=== PATIENT | female | born 1965 | race Caucasian/White ===

== ENCOUNTER 2017-06-23 20:09 | Emergency (ER) | payer OTHER ==
[~2017-06-23] VITALS: Ht 165.1 cm; Wt 77.1 kg
[~2017-06-23 20:09] MED LIST: ATOR40TA PO; BLACK COHOSH EX80 MG PO; IBUP800; LEVSOD88 PO; METO25ER PO
[2017-06-23 20:43] LABS: BASOPHILS ABSOLUTE AUTO 0.02 K/mm3 (0.00-0.23); BASOPHILS PERCENT AUTO 0 % (0-2); EOSINOPHILS PERCENT AUTO 0 % (0-6); Hematocrit 38.5 % (33.0-51.0); Hemoglobin 13.4 g/dL (11.5-16.0); IMMATURE GRAN ABSOLUTE AUTO 0.03 K/mm3 (0.00-0.10); IMMATURE GRAN PERCENT AUTO 0 % (0-1); LYMPHOCYTES ABSOLUTE AUTO 2.37 K/mm3 (0.84-5.20); LYMPHOCYTES PERCENT AUTO 21 % (21-46); MONOCYTES ABSOLUTE AUTO 0.81 K/mm3 (0.16-1.47); MONOCYTES PERCENT AUTO 7 % (4-13); Mean Corpuscular HGB 30.1 pg (26.0-34.0); Mean Corpuscular HGB Conc 34.8 g/dL (31.5-36.5); Mean Corpuscular Volume 87 fL (80-100); Mean Platelet Volume 9.4 fL (9.1-12.4); NEUTROPHILS ABSOLUTE AUTO 8.07 K/mm3 (1.96-9.15); NEUTROPHILS PERCENT AUTO 71 % (41-73); Platelet Count 210 K/mm3 (150-400); RDW Coefficient Variation 11.6 % (11.7-14.2); RDW Standard Deviation 37.2 fL (35.1-46.3); Red Blood Cell Count 4.45 M/mm3 (3.80-5.20)
[2017-06-23 21:01] LABS: Alanine Aminotransfer (ALT/SGP 25 U/L (12-78); Albumin, Blood 3.6 g/dL (3.4-5.0); Albumin/Globulin Ratio 0.8 (0.8-1.8); Alk Phos 70 U/L (50-136); Anion Gap 7 mmol/L (6-16); Aspartate Aminotrans (AST/SGOT 21 U/L (12-37); Bilirubin, Total 0.4 mg/dL (0.1-1.0); Blood Urea Nitrogen 13 mg/dL (8-24); Bun/Creatinine Ratio 17.1 (12.0-20.0); CO2, Blood 25 mmol/L (21-32); Chloride, Blood 103 mmol/L (98-108); Creatinine, Blood 0.76 mg/dL (0.40-1.00); Globulin, Blood 4.5 g/dL (2.2-4.0); Glomerular Filtration Rate >60 (60-); Glucose, Blood 125 mg/dL (70-99); Sodium, Blood 135 mmol/L (136-145); Total Protein, Blood 8.1 g/dL (6.4-8.2)
[2017-06-23 21:53] LABS: Source, Urine Clean Catch
[2017-06-23 21:57] LABS: Bilirubin, Urine Neg (Neg); Blood, Urine 1+ (Neg); Glucose Qualitative, Urine Neg (Neg); Ketones, Urine 1+ (Neg); Leukocyte Esterase, Urine Neg (Neg); Nitrite, Urine Neg (Neg); Protein, Urine 2+ (Neg); Specific Gravity, Urine 1.015 (1.003-1.022); Urobilinogen, Urine 1+ (Normal); pH, Urine 6.5 (5.0-8.0)
[2017-06-23 22:09] LABS: Appearance, Urine Clear (Clear); Color, Urine Yellow (P-Yellow)
[2017-06-23 22:10] LABS: White Blood Cells, Urine 0-2 /hpf (0-5)
[2017-06-23 22:11] LABS: Amorphous Light (0-Heavy); Bacteria Few /hpf; Squamous Epithelial Cells Few /hpf (Few)
[2017-06-23] MEDS ORDERED: Zofran Odt4 MG PO (23:22)
== END 2017-06-23 22:46 | disposition left against medical advice (07) ==
LOC: ER 20:09
PROVIDERS: Emergency Medicine
DX: R11.2 Nausea with vomiting, unspecified (principal); R19.7 Diarrhea, unspecified; R10.32 Left lower quadrant pain; Z79.899 Other long term (current) drug therapy; I10 Essential (primary) hypertension; E03.9 Hypothyroidism, unspecified
CPT/HCPCS: 36415; 74177; 80053; 81001; 83690; 85025; 99284; J2405; J7030; Q9967

== ENCOUNTER 2017-06-27 12:38 | Emergency (ER) | payer OTHER ==
[~2017-06-27] VITALS: Ht 165.1 cm; Wt 72.6 kg
[~2017-06-27 12:38] MED LIST changes: +Zofran Odt4 MG PO
[2017-06-27 13:42] LABS: BASOPHILS ABSOLUTE AUTO 0.02 K/mm3 (0.00-0.23); BASOPHILS PERCENT AUTO 0 % (0-2); EOSINOPHILS ABSOLUTE AUTO 0.03 K/mm3 (0.00-0.68); EOSINOPHILS PERCENT AUTO 0 % (0-6); Hematocrit 37.6 % (33.0-51.0); Hemoglobin 13.3 g/dL (11.5-16.0); IMMATURE GRAN ABSOLUTE AUTO 0.22 K/mm3 (0.00-0.10); IMMATURE GRAN PERCENT AUTO 2 % (0-1); LYMPHOCYTES ABSOLUTE AUTO 2.68 K/mm3 (0.84-5.20); LYMPHOCYTES PERCENT AUTO 27 % (21-46); MONOCYTES ABSOLUTE AUTO 0.81 K/mm3 (0.16-1.47); MONOCYTES PERCENT AUTO 8 % (4-13); Mean Corpuscular HGB 30.4 pg (26.0-34.0); Mean Corpuscular HGB Conc 35.4 g/dL (31.5-36.5); Mean Corpuscular Volume 86 fL (80-100); Mean Platelet Volume 9.2 fL (9.1-12.4); NEUTROPHILS ABSOLUTE AUTO 6.36 K/mm3 (1.96-9.15); NEUTROPHILS PERCENT AUTO 63 % (41-73); Platelet Count 407 K/mm3 (150-400); RDW Coefficient Variation 11.8 % (11.7-14.2); RDW Standard Deviation 36.7 fL (35.1-46.3); Red Blood Cell Count 4.38 M/mm3 (3.80-5.20); White Blood Cell Count 10.12 K/mm3 (4.00-11.30)
[2017-06-27 13:59] LABS: Alanine Aminotransfer (ALT/SGP 31 U/L (12-78); Albumin, Blood 3.4 g/dL (3.4-5.0); Albumin/Globulin Ratio 0.7 (0.8-1.8); Alk Phos 66 U/L (50-136); Anion Gap 11 mmol/L (6-16); Aspartate Aminotrans (AST/SGOT 20 U/L (12-37); Bilirubin, Total 0.6 mg/dL (0.1-1.0); Blood Urea Nitrogen 8 mg/dL (8-24); Bun/Creatinine Ratio 9.9 (12.0-20.0); CO2, Blood 22 mmol/L (21-32); Calcium, Blood 9.2 mg/dL (8.5-10.1); Chloride, Blood 106 mmol/L (98-108); Creatinine, Blood 0.81 mg/dL (0.40-1.00); Globulin, Blood 4.9 g/dL (2.2-4.0); Glomerular Filtration Rate >60 (60-); Glucose, Blood 122 mg/dL (70-99); Potassium, Blood 2.8 mmol/L (3.5-5.5); Sodium, Blood 139 mmol/L (136-145); Total Protein, Blood 8.3 g/dL (6.4-8.2)
[2017-06-27 14:29] LABS: Magnesium, Blood 2.2 mg/dL (1.6-2.4)
[2017-06-27 14:50] LABS: Source, Urine Clean Catch
[2017-06-27 15:07] LABS: Bilirubin, Urine Neg (Neg); Blood, Urine 1+ (Neg); Glucose Qualitative, Urine Neg (Neg); Ketones, Urine 2+ (Neg); Leukocyte Esterase, Urine Neg (Neg); Nitrite, Urine Neg (Neg); Protein, Urine 2+ (Neg); Urobilinogen, Urine NORM (Normal)
[2017-06-27 15:23] LABS: Influenza A Negative (NEGATIVE); Influenza B Negative (NEGATIVE)
[2017-06-27 15:36] LABS: Appearance, Urine Clear (Clear); Color, Urine Pale Yellow (P-Yellow)
[2017-06-27 15:37] LABS: Bacteria Not Seen /hpf; Red Blood Cells, Urine Not Seen /hpf (0-2); Squamous Epithelial Cells Many /hpf (Few); White Blood Cells, Urine Not Seen /hpf (0-5)
[2017-06-27] MEDS ORDERED: K-Dur20 MEQ PO (15:57)
[2017-06-27] MEDS ORDERED: Mobic15 MG PO (15:57)
== END 2017-06-27 16:49 | disposition home or self-care (01) ==
LOC: ER 12:38
PROVIDERS: Emergency Medicine; Physician Assistant
DX: M79.1 Myalgia (principal); R19.7 Diarrhea, unspecified; E87.6 Hypokalemia; Z79.899 Other long term (current) drug therapy
CPT/HCPCS: 36415; 71046; 80053; 81001; 83690; 83735; 85025; 87804; 96361; 96374; 96375; 99283; J1885; J2405; J7030

== ENCOUNTER → 2018-10-17 | Outpatient (CLI) | payer OTHER ==
[~2018-10-17] MED LIST changes: +K-Dur20 MEQ PO; +Mobic15 MG PO
[2018-10-18 14:07] LABS: HPV 16 Negative (Negative); HPV 18 Negative (Negative); HPV OTHER HR TYPES Negative (Negative)
== END | disposition home or self-care (01) ==
LOC: LAB 12:43 → LAB SHORT 12:43
PROVIDERS: Nurse Practitioner Women's Health
DX: Z12.72 Encounter for screening for malignant neoplasm of vagina (principal); Z91.89 Other specified personal risk factors, not elsewhere classified
CPT/HCPCS: 87624; G0123

== ENCOUNTER 2022-01-27 06:11 | Day surgery (SDC) | payer OTHER ==
[~2022-01-27] VITALS: Ht 160 cm; Wt 76.0 kg
== END 2022-01-27 09:21 | disposition home or self-care (01) ==
LOC: ORSCSDS 06:11
PROVIDERS: Orthopaedic Surgery
PROC: 0SBC4ZZ Excision of Right Knee Joint, Percutaneous Endoscopic Approach (ICD-10-PCS; principal; 2022-01-27 07:30)
DX: S83.281A Other tear of lateral meniscus, current injury, right knee, initial encounter (principal); S83.241A Other tear of medial meniscus, current injury, right knee, initial encounter; S83.511A Sprain of anterior cruciate ligament of right knee, initial encounter; M67.51 Plica syndrome, right knee; W17.89XA Other fall from one level to another, initial encounter; J44.9 Chronic obstructive pulmonary disease, unspecified; E03.9 Hypothyroidism, unspecified; Z79.899 Other long term (current) drug therapy; M19.90 Unspecified osteoarthritis, unspecified site
CPT/HCPCS: A9270; J0690; J1100; J2250; J2405; J2704; J3010; J7120

== ENCOUNTER 2023-12-15 09:57 | Day surgery (SDC) | payer OTHER ==
[~2023-12-15] VITALS: Ht 160 cm; Wt 78.6 kg
[~2023-12-15 09:57] MED LIST changes: +Lactated Ringer's 1,000 ML IV ONE
[2023-12-15] MEDS ORDERED: MONT10T (10:14)
[2023-12-15] MEDS ORDERED: CITALOPRAM HBR10 MG (10:14)
[2023-12-15] MEDS ORDERED: LATA.005SO (10:15)
[2023-12-15] MEDS ORDERED: BREYNA 160-4.10.3 GM (10:15)
[2023-12-15] MEDS ORDERED: TIMO.5OPSO (10:15)
[2023-12-15] MEDS ORDERED: Lactated Ringer's 1,000 ML IV ONE (10:27)
--- NOTE | 2023-12-15 10:56 | NUR ---
12/15/23 1056 Beth Moody INJECTED INTO THE RIGHT WRIST 8ML OF LOCAL. TIME OUT AT 1051. INJECTION AT 1052, END AT 1052. PATIENT TOLERATED WELL.
[2023-12-15] MEDS ORDERED: Midazolam HCl 1MG / ML 2ML Vial ONE (11:17)
[2023-12-15 11:40] VITALS: BP 113/63
--- NOTE | 2023-12-15 11:52 | NUR ---
12/15/23 Elder2 Juju Paulino PT DENIED PAIN AND NO NAUSEA. PT ABLE TO TOLERATE FLUIDS. VSS. TM
== END 2023-12-15 12:00 | disposition home or self-care (01) ==
LOC: ORSCSDS 09:57
PROVIDERS: Orthopaedic Surgery
PROC: 01N54ZZ Release Median Nerve, Percutaneous Endoscopic Approach (ICD-10-PCS; principal; 2023-12-15 14:00)
DX: G56.03 Carpal tunnel syndrome, bilateral upper limbs (principal); M18.0 Bilateral primary osteoarthritis of first carpometacarpal joints; I25.10 Atherosclerotic heart disease of native coronary artery without angina pectoris; G47.33 Obstructive sleep apnea (adult) (pediatric); J44.9 Chronic obstructive pulmonary disease, unspecified; E78.00 Pure hypercholesterolemia, unspecified; E03.9 Hypothyroidism, unspecified; Z87.891 Personal history of nicotine dependence; Z79.82 Long term (current) use of aspirin; Z79.899 Other long term (current) drug therapy
CPT/HCPCS: J2250; J7120

== ENCOUNTER 2024-01-09 08:16 | Day surgery (SDC) | payer OTHER ==
[~2024-01-09] VITALS: Ht 160 cm; Wt 78.9 kg
[~2024-01-09 08:16] MED LIST changes: +BREYNA 160-4.10.3 GM INH; +CITALOPRAM HBR10 MG; +LATA.005SO BOTHEYES; +MONT10T PO; +TIMO.5OPSO BOTHEYES
[2024-01-09] MEDS ORDERED: Lactated Ringer's 1,000 ML IV ONE (09:17)
[2024-01-09] MEDS ORDERED: propofoL 20 ML IV ONE (09:21)
--- NOTE | 2024-01-09 09:23 | NUR ---
01/09/24 0923 Margaret Escobedo TIME OUT AT 0915 TO VERIFY CORRECT PT, PROCEDURE, SITE, ALLERIGES AND MEDICATION. PT ELECTED TO PROCEED WITH BLOCK. 8CC USED OF LIDOCAINE 1% WITH EPI [id number] WITH 1CC SODIUM BICARB. PT TOLERATED WELL. END AT 0917
[2024-01-09 09:51] VITALS: BP 101/63
[2024-01-09] MEDS ORDERED: CITALOPRAM HBR10 MG PO (11:43)
== END 2024-01-09 10:05 | disposition home or self-care (01) ==
LOC: ORSCSDS 08:16
PROVIDERS: Orthopaedic Surgery
PROC: 01N54ZZ Release Median Nerve, Percutaneous Endoscopic Approach (ICD-10-PCS; principal; 2024-01-09 10:15)
DX: G56.02 Carpal tunnel syndrome, left upper limb (principal); M17.12 Unilateral primary osteoarthritis, left knee; J44.9 Chronic obstructive pulmonary disease, unspecified; E78.00 Pure hypercholesterolemia, unspecified; E03.9 Hypothyroidism, unspecified; G47.30 Sleep apnea, unspecified; Z87.891 Personal history of nicotine dependence; Z79.82 Long term (current) use of aspirin; Z79.899 Other long term (current) drug therapy; Z01.812 Encounter for preprocedural laboratory examination; R94.31 Abnormal electrocardiogram [ECG] [EKG]
CPT/HCPCS: 36415; 80048; 85025; 93005; 93010; J2704; J7120

== ENCOUNTER 2024-01-30 07:56 | Day surgery (SDC) | payer OTHER ==
[2024-01-30] VITALS (14 sets, daily range): BP systolic 93–125; BP diastolic 53–86
[~2024-01-30] VITALS: Ht 160 cm; Wt 77.7 kg
[~2024-01-30 07:56] MED LIST changes: +Acetaminophen 500 MG Tab PO SCH; +CITALOPRAM HBR10 MG PO; +CeFAZolin Sodium 2,000 MG in NS 100 ML IV SCH; +Chlorhexidine Mouth Care 15 ML UDC MT SCH; -Lactated Ringer's 1,000 ML IV ONE; +Lactated Ringer's 1,000 ML IV SCH; +OxyCODONE HCL 10 MG TABCR PO SCH; +Ropivacaine 0.5% HCl/Pf 123.125 MG,EPINEPHrine HCL 0.25 MG,Ketorolac Tromethamine 15 MG... INFIL SCH; +Tranexamic Acid 100 ML IV SCH
--- NOTE | 2024-01-30 08:40 | NUR ---
Ambulatory in Day Surgery.Reports 3/10 left knee pain. History, Chart, Medications and Allergies reviewed before start of procedure.Lungs clear T/O to Auscultation. Patient confirms NPO status and agrees with scheduled surgery. Patient reports completing Chlorhexadine shower X2 prior to admission to hospital.Surgical site prepped with 2% Chlorhexidine cloth wipe.
[2024-01-30] MEDS ORDERED: CeFAZolin Sodium 2,000 MG VIAL ONE (08:53)
[2024-01-30] MEDS ORDERED: FentaNYL Citrate 50 MCG/ML 2 ML Injection ONE (10:38)
[2024-01-30] MEDS ORDERED: Midazolam HCl 1MG / ML 2ML Vial ONE ×2 (10:38→11:01)
[2024-01-30] MEDS ORDERED: Ondansetron HCl 2 MG / ML 2ML Vial ONE (11:02)
[2024-01-30] MEDS ORDERED: Dexamethasone Sod Phos 10 MG/ML 1ML VIAL ONE (11:02)
[2024-01-30] MEDS ORDERED: Lactated Ringer's 1,000 ML IV SCH (11:05)
[2024-01-30] MEDS ORDERED: HYDROmorphone HCl/Pf 1MG SYR IV PRN (11:05)
[2024-01-30] MEDS ORDERED: Magnesium Hydroxide Conc 10 ML UDC PO PRN (11:05)
[2024-01-30] MEDS ORDERED: Metoclopramide HCl 5MG / ML 2ML Vial IV PRN (11:05)
[2024-01-30] MEDS ORDERED: OxyCODONE HCL 5 MG TAB PO PRN ×2 (11:10)
[2024-01-30] MEDS ORDERED: Ondansetron HCl 2 MG / ML 2ML Vial IV PRN (11:10)
[2024-01-30] MEDS ORDERED: FLU VACC TS2024-25(6MOS UP)/PF 45 MCG/0.5 ML SYRINGE IM ONE (11:10)
[2024-01-30] MEDS ORDERED: Bisacodyl 10 MG Supp PR PRN (11:15)
[2024-01-30] MEDS ORDERED: Promethazine HCl 25 MG Tab PO PRN (11:15)
[2024-01-30] MEDS ORDERED: DiphenhydrAMINE HCL 25 MG Cap PO PRN (11:15)
[2024-01-30] MEDS ORDERED: Mometasone/Formoterol MDI 200/5 mcg 13 GM INH SCH (11:20)
[2024-01-30] MEDS ORDERED: Ketorolac Tromethamine 15mg Vial IV SCH (12:00)
[2024-01-30] MEDS ORDERED: Acetaminophen 500 MG Tab PO SCH (16:00)
[2024-01-30] MEDS ORDERED: CeFAZolin Sodium 2,000 MG in NS 100 ML IV SCH (18:30)
--- NOTE | 2024-01-30 19:59 | NUR ---
SHIFT SUMMARY POD0 L TKA, A/OX4, VSS, TOLERATING PO ABLE TO GET UP AND AMBULATE TO THE BATHROOM USING FWW/GB AND STAFF SBA, DENIES PAIN, REPORTS SMALL SPOT OF NUMBNESS IN HER LEFT FOOT, SHE APPEARS TO HAVE DROP FOOT IN HER LEFT FOOT WELL BUT IT IS NOT KNOWN IF THIS IS HER BASELINE OR RELATED TO THE NUMB SPOT, ATTEMPTED TO DISCUSS THIS WITH HER BUT SHE WAS HAVING DIFFICULTY UNDERSTANDING WHAT THIS RN WAS SAYING. NO ACUTE EVENTS THIS SHIFT, CALL LIGHT IN REACH.
[2024-01-30] MEDS ORDERED: Docusate Sodium 100 MG Cap PO SCH (21:00)
[2024-01-30] MEDS ORDERED: Montelukast Sodium 10 MG Tab PO SCH (21:00)
[2024-01-30] MEDS ORDERED: Latanoprost 0.005% Opth Soln 2.5 ML BOTHEYES SCH (21:00)
[2024-01-31 02:49] VITALS: BP 129/73
--- NOTE | 2024-01-31 03:58 | NUR ---
SHIFT SUMMARY POD1 L TKA. SENSATION AND CIRCULATION REMAIN INTACT, N/T IN L FOOT HAS RESOLVED. DRESSING REMAINS C/D/I. VSS. PT SLEPT ON AND OFF T/O THE NIGHT. MEDICATED FOR PAIN W/PRN'S AND SCHEDULED MEDICATIONS W/GOOD RESULTS. PT ABLE TO AMBULATE TO THE BATHROOM W/ SBA, VOIDING W/O DIFFICULTY. TOLLERATING PO INTAKE W/O N/V. OVERALL, NO ACUTE EVENTS NOTED. PLAN FOR PHYSCIAL THERAPY TODAY AND D/C HOME.
[2024-01-31 05:27] LABS: BASOPHILS ABSOLUTE AUTO 0.03 K/mm3 (0.00-0.23); BASOPHILS PERCENT AUTO 0 % (0-2); EOSINOPHILS ABSOLUTE AUTO 0.05 K/mm3 (0.00-0.68); EOSINOPHILS PERCENT AUTO 0 % (0-6); Hematocrit 33.9 % (33.0-51.0); Hemoglobin 11.7 g/dL (11.5-16.0); IMMATURE GRAN ABSOLUTE AUTO 0.06 K/mm3 (0.00-0.10); IMMATURE GRAN PERCENT AUTO 0 % (0-1); LYMPHOCYTES ABSOLUTE AUTO 2.59 K/mm3 (0.84-5.20); LYMPHOCYTES PERCENT AUTO 18 % (21-46); MONOCYTES ABSOLUTE AUTO 1.06 K/mm3 (0.16-1.47); MONOCYTES PERCENT AUTO 7 % (4-13); Mean Corpuscular HGB 30.6 pg (26.0-34.0); Mean Corpuscular HGB Conc 34.5 g/dL (31.5-36.5); Mean Corpuscular Volume 89 fL (80-100); NEUTROPHILS ABSOLUTE AUTO 10.93 K/mm3 (1.96-9.15); NEUTROPHILS PERCENT AUTO 74 % (41-73); Platelet Count 266 K/mm3 (150-400); RDW Coefficient Variation 11.9 % (11.7-14.2); RDW Standard Deviation 38.8 fL (35.1-46.3); Red Blood Cell Count 3.82 M/mm3 (3.80-5.20); White Blood Cell Count 14.72 K/mm3 (4.00-11.30)
[2024-01-31 05:58] LABS: Bun/Creatinine Ratio 17.2 (12.0-20.0); Calcium, Blood 9.1 mg/dL (8.5-10.1); Creatinine, Blood 0.58 mg/dL (0.40-1.00); Magnesium, Blood 2.2 mg/dL (1.6-2.4); Potassium, Blood 3.8 mmol/L (3.5-5.5)
[2024-01-31 07:12] VITALS: BP 119/75
[2024-01-31] MEDS ORDERED: ACET500 PO (07:29)
[2024-01-31] MEDS ORDERED: OXYC5 PO (07:30)
[2024-01-31] MEDS ORDERED: ASPI81CH PO (07:30)
[2024-01-31] MEDS ORDERED: Levothyroxine Sodium 0.088 MG Tab PO SCH (09:00)
[2024-01-31] MEDS ORDERED: Aspirin 81 MG Chew PO SCH (09:00)
[2024-01-31] MEDS ORDERED: Timolol 0.5% Opth Soln 5 ML BOTHEYES SCH (09:00)
[2024-01-31] MEDS ORDERED: Citalopram Hydrobromide 10 MG TAB PO SCH (09:00)
--- NOTE | 2024-01-31 11:18 | NUR ---
DISCHARGE SUMMARY POD1 L TKA, A/OX4, VSS, TOLERATING PO, DENIES PAIN, AMBULATING WELL, WORKED WITH THERAPY, LUKE TO L KNEE C/D/I, PROVIDED HER WITH ADDITIONAL DRESSINGS TO GO HOME WITH AND CHANGE BETWEEN NOW AND HER FOLLOW UP APPOINTMENT. DISCUSSED DISCHARGE INSTRUCTIONS INCLUDING HOME CARE, MEDICATIONS, AND FOLLOW UP APPOINTMENTS. NO QUESTIONS AT THIS TIME, ESCORTED OUT VIA WC TO PRIVATE AUTO TO GO HOME.
== END 2024-01-31 10:25 | disposition home or self-care (01) ==
LOC: ORSCMMR 07:56 → ORD 10:00 → ORSCMMR 10:30 → ORD 10:30 → SURS 13:33 → ORD 14:30 → ORSCMMR 01-31 10:25
PROVIDERS: Orthopaedic Surgery
PROC: 0SRD0JA Replacement of Left Knee Joint with Synthetic Substitute, Uncemented, Open Approach (ICD-10-PCS; principal; 2024-01-30 10:30)
DX: M17.12 Unilateral primary osteoarthritis, left knee (principal); J44.9 Chronic obstructive pulmonary disease, unspecified; G47.33 Obstructive sleep apnea (adult) (pediatric); E78.00 Pure hypercholesterolemia, unspecified; Z87.891 Personal history of nicotine dependence; Z79.899 Other long term (current) drug therapy
CPT/HCPCS: 36415; 73560-LT; 80048; 83735; 85025; 94640; 94664; 94762; 97110; 97116; 97162; A9270; C1713; C1776; C1887; J0171; J0690; J0735; J1100; J1885; J2250; J2405; J2795; J3010; J7120